=== PATIENT | female | born 1940 | race African-American/Black ===

== ENCOUNTER 2016-08-26 10:44 | Inpatient (IN) ==
--- NOTE | 2016-08-26 11:15 | PROVIDER DOCUMENTATION ---
HPI-Syncope/Dizziness - General Chief Complaint: Dizziness Stated Complaint: Dizziness Time Seen by Provider: 08/26/16 10:50 Source: patient, EMS Allergies/Adverse Reactions: Patient Allergies Allergy/AdvReac Type Severity Reaction Status Date / Time Penicillins Allergy Mild HIVES Verified 08/26/16 11:54 Home Medications: Home Medication List Medication Instructions Recorded Confirmed Last Taken Type Aspirin 81 mg PO DAILY 03/08/12 08/26/16 03/05/12 10:00 History Cholecalciferol (Vitamin D3) 400 unit PO DAILY 03/08/12 08/26/16 03/05/12 10:00 History [Vitamin D] Multivitamin [Multi-Day Vitamins] 1 each PO DAILY 03/08/12 08/26/16 03/05/12 10: 00 History Naproxen Sodium [Aleve] 220 mg PO PRN PRN 03/08/12 08/26/16 03/05/12 10:00 History Bupropion S.r. [Wellbutrin Sr] 150 mg PO QAM 08/26/16 08/26/16 Unknown History Celecoxib [Celebrex] 200 mg PO BID 08/26/16 08/26/16 Unknown History - History of Present Illness-Syncope/Dizzy Nature of Presenting Problem: Presents to er with cc of dizziness since 0200 this am. Reports woke up at 0200 this am when sat up in bed was not able to get out due to dizziness. Reports called daughter at 0900 to call 911. Pt reports she hasnt; been able to walk or stand due to dizziness. Reports has trouble remembering certain things which is normal but doesn't understand what is going on. Prior Episodes: reports: no prior history Onset/Duration: reports: this morning (0200) Timing: reports: still present Position/Activity at time of episode: reports: sitting Loss of Consciousness: no loss of consciousness - Dizziness Severity in ED: reports: moderate Dizziness Related Current/Associated Symptoms: reports: dizzy Any recent trauma/injury?: reports: none Modifying Factors: improves with: changing position Patient usually:: reports: walks without assistance Review of Systems - Adult - REVIEW OF SYSTEMS - ADULT Constitutional: denies: chills, fever, fatique Eyes: reports: no symptoms reported Ears, Nose, Mouth & Throat: reports: no symptoms reported Cardiovascular: denies: chest pain, irregular heart rate, orthopnea Respiratory: reports: no symptoms reported Gastrointestinal: reports: no symptoms reported Genitourinary: denies: discharge, frequent UTI's, hematuria Musculoskeletal: denies: bone pain, joint pain, joint swelling Integumentary: reports: no symptoms reported Neurological: reports: dizziness/vertigo. denies: headache/migraines, loss of balance, numbness, paresthesia Psychiatric: reports: no symptoms reported Endocrine: reports: no symptoms reported Hematologic/Lymphatic: reports: no symptoms reported Allergic/Immunologic: reports: no symptoms reported All Other Systems: Reviewed and Negative Past History - Adult - PAST MEDICAL HISTORY-ADULT Review of Records: reports: Nursing Assessment Review, Medications Reviewed Major Childhood Illnesses: reports: denies history Gastrointestinal: reports: GERD - PRIOR SURGERIES/PROCEDURES Surgical/Procedure History: reports: appendectomy, cholecystectomy, hysterectomy - IMMUNIZATION STATUS Childhood Immunizations: See Nurse Assessment Flu Vaccine: See Nurse Assessment - FAMILY HISTORY Family History: reviewed, not pertinent - SOCIAL HISTORY Smoking: denies Substance Use: none/never Physical Exam-General - PHYSICAL EXAM-ADULT Initial Vital Signs Reviewed: Yes - CONSTITUTIONAL General Appearance: appears well, alert, no apparent distress - EYES Eyes: PERRL/EOMI - HEAD, EARS, NOSE, MOUTH & THROAT HENMT: normal ENT inspection, TMs normal, pharynx normal - NECK Neck: non-tender, full range of motion, supple, normal inspection - RESPIRATORY Respiratory: chest non-tender, lungs clear, normal breath sounds - CARDIOVASCULAR Cardiovascular: regular rate, rhythm, no edema, no gallop, no JVD, no murmur - GASTROINTESTINAL (ABDOMEN) Abdominal Exam: normal bowel sounds, non tender, soft, no organomegaly, no pulsatile mass - MUSCULOSKELETAL Extremity: normal range of motion, non-tender. 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, grossly normal, no motor/sensory deficits - PSYCHIATRIC Psych/Mental Status: normal mood/affect, normal thought content, normal thought process, oriented x 3 Progress - PLAN OF CARE/RESULTS Progress/Plan/Lab Results: Orders Category Date Time Status Cardiac Monitoring DIRECTED Care 08/26/16 11:15 Active Finger Stick Blood Sugar (ED) DIRECTED Care 08/26/16 11:15 Active Saline Loc NOW Care 08/26/16 11:15 Active CHEST-PORTABLE [RAD] Stat Exams 08/26/16 11:15 Taken HEAD W/O CONTRAST [CT] Stat Exams 08/26/16 11:16 Taken ALCOHOL BLOOD Stat Lab 08/26/16 10:10 Completed CBC WITH ELECTRONIC DIFF [HEME] Stat Lab 08/26/16 10:10 Results CK PROFILE [SP CHEM] Stat Lab 08/26/16 10:10 Completed COMPREHENSIVE METABOLIC PANEL [CHEM] Stat Lab 08/26/16 10:10 Completed OCCULT BLOOD SCREENING [STOOL] Stat Lab 08/26/16 12:03 Uncollected PROTIME WITH INR [COAG] Stat Lab 08/26/16 10:10 Completed PTT [COAG] Stat Lab 08/26/16 10:10 Completed TROPONIN T Stat Lab 08/26/16 10:10 Completed URINALYSIS W/POSS RFLX CULT [URINALYSIS] Stat Lab 08/26/16 11:15 Uncollected URINE DRUG SCREEN Stat Lab 08/26/16 11:15 Uncollected 0.9% Sodium Chloride Inj [Ns] 1,000 ml Med 08/26/16 11:16 Active IV 250 mls/hr Pulse Oximetry Stat Oth 08/26/16 11:15 Completed EKG [EKG] Stat Ther 08/26/16 11:15 Draft Vital Signs - 24 hr 08/26/16 10:40 Temperature 98 F Pulse Rate 62 Respiratory 20 Rate Blood Pressure 184/87 O2 Sat by Pulse 100 Oximetry Laboratory Tests 08/26/16 08/26/16 08/26/16 10:10 10:10 10:10 WBC 6.43 RBC 5.36 Hgb 10.1 L Hct 31.6 L MCV 59.0 L MCH 18.8 L MCHC 32.0 L RDW Std Deviation 16.5 H Plt Count 220 MPV 11.0 H Immature Gran % (Auto) 0.0 Neut % (Auto) 53.1 Lymph % (Auto) 39.0 Cobb % (Auto) 5.9 Eos % (Auto) 1.7 Baso % (Auto) 0.3 Immature Gran # (Auto) 0.00 Neut # (Auto) 3.41 Lymph # (Auto) 2.51 Cobb # (Auto) 0.38 Eos # (Auto) 0.11 Baso # (Auto) 0.02 PT 10.2 INR 1.00 PTT (Actin FS) 23.8 Sodium 139 Potassium 4.0 Chloride 102 Carbon Dioxide 27 Anion Gap 10 BUN 16 Creatinine 0.8 Estimated GFR/1.73 m2 > 60 BUN/Creatinine Ratio 20 Glucose 76 Calculated Osmolality 277 Calcium 8.9 Total Bilirubin 0.30 AST 26 ALT 20 Alkaline Phosphatase 65 Creatine Kinase 103 Troponin T Total Protein 6.7 Albumin 3.7 Globulin 3.0 Albumin/Globulin Ratio 1.2 Plasma/Serum Ethyl Alc 08/26/16 08/26/16 10:10 10:10 WBC RBC Hgb Hct MCV MCH MCHC RDW Std Deviation Plt Count MPV Immature Gran % (Auto) Neut % (Auto) Lymph % (Auto) Cobb % (Auto) Eos % (Auto) Baso % (Auto) Immature Gran # (Auto) Neut # (Auto) Lymph # (Auto) Cobb # (Auto) Eos # (Auto) Baso # (Auto) PT INR PTT (Actin FS) Sodium Potassium Chloride Carbon Dioxide Anion Gap BUN Creatinine Estimated GFR/1.73 m2 BUN/Creatinine Ratio Glucose Calculated Osmolality Calcium Total Bilirubin AST ALT Alkaline Phosphatase Creatine Kinase Troponin T < 0.010 Total Protein Albumin Globulin Albumin/Globulin Ratio Plasma/Serum Ethyl Alc Stool occult negative - EKG 1 Time of EKG reading by physician:: 11:04 EKG Read and Signed by:: Pratik Rosen EKG Interpretation (*Must complete 3 of following elements*): Abnormal Rate: 61 Rhythm: NSR [place]: normal QRS: LVH (MINMAL VOLTAGE FOR LVH MAY BE NORMAL VARIANT) SD Interval: normal ST Wave: normal - XRAY 1 XRAY: Bilateral XRAY Study: Chest Impression: Normal XRAY Interpretation: nad - CT/MRI 1 CT Study: Head Impression: Normal CT Results: no intracranial disease; nad - CONSULTS/PCP/HOSPITALIST Notification #1 *Consult/PCP/Hospitalist*: Time Discussed: 14:40 Consult Disposition: Admit Departure - Departure Time of Disposition Order: 14:22 DIAGNOSIS: Dizziness TIA (transient ischemic attack) Qualifiers: Transient cerebral ischemia type: unspecified Qualified Code(s): G45.9 - Transient cerebral ischemic attack, unspecified Hypertension Qualifiers: Hypertension type: essential hypertension Qualified Code(s): I10 - Essential ( primary) hypertension Disposition: ADMITTED INPATIENT 09 Certified Medical Emergency: Emergent Condition: Stable Additional Instructions: Follow up with pcp ED Follow Up Instructions: You have been treated by a care provider in the Emergency Department. These instructions are being provided to you so you can have an understanding of how to care for yourself upon discharge. Upon discharge from the Emergency Department, you are responsible for making arrangements for follow-up care by a physician of your choice. Take all prescribed medications as directed. Return to the Emergency Department immediately for any new or worsening symptoms. You may call the Physician Referral phone number at [phone] to obtain a list of Physicians who are taking new patients. Referrals: Dawn Mike MD [Primary Care Provider] - Attestation - Scribe Verification/Attestation Scribe:: Edwina Macias Acting as Scribe for:: Pratik Rosen Scribe documention review:: This chart was documented by a scribe and accurately reflects the service the provider performed and the decisions made by the provider. Physician Attestation - Physician Attestation I, the provider, attest to the following statement:: Pratik Rosen Physician documentation Attestation:: This documentation recorded by the scribe accurately reflects the service I personally performed and the decisions made by me.
[2016-08-26] MEDS ORDERED: NS 1,000 ML IV ONE (11:16)
[2016-08-26 12:13] LABS: PROTIME 10.2 Seconds (9.2-11.7); PTT 23.8 Seconds (22.0-36.0)
[2016-08-26 12:15] LABS: AGAP 10; ALBUMIN 3.7 g/dL (3.5-5.0); ALKALINE PHOSPHATASE 65 U/L (32-104); BUN 16 mg/dL (8-22); CALCIUM 8.9 mg/dL (8.8-10.2); CHLORIDE 102 mmol/L (98-107); CK PROFILE 103 U/L (24-173); COSMO 277; GOT 26 U/L (10-30); GPT 20 U/L (10-36); SODIUM 139 mmol/L (136-145); TCO2 27 mmol/L (25-35); TOTAL PROTEIN 6.7 g/dL (6.3-8.3)
--- NOTE | 2016-08-26 12:17 | EKG Report ---
Test Performed on : 08/26/2016 11:04:48 AM Test Reason : AMS Blood Pressure : / mmHG Vent. Rate : 061 BPM Atrial Rate : 061 BPM P-R Int : 192 ms QRS Dur : 102 ms QT Int : 460 ms P-R-T Axes : 066 -23 -17 degrees QTc Int : 463 ms Normal sinus rhythm. Moderate voltage criteria for LVH, may be normal variant Borderline ECG No previous ECGs available Unconfirmed Result
[2016-08-26 12:22] LABS: BASO% 0.3 % (0.0-0.8); EOS# 0.11 X1000 (0.0-0.7); EOS% 1.7 % (0.0-10.0); HEMATOCRIT 31.6 % (37.0-47.0); HEMOGLOBIN 10.1 g/dL (12.0-16.0); LYMPH# 2.51 X1000 (1.2-3.4); MCH 18.8 PG (27-31); MONO# 0.38 X1000 (0.11-0.59); MONO% 5.9 % (1.7-9.3); NEUT% 53.1 % (42.2-75.2); PLT 220 X1000 (130-400); RBC 5.36 XMIL (4.2-5.4)
--- NOTE | 2016-08-26 12:46 | Diag Imaging Result Document ---
PROCEDURE NAME: HEAD W/O CONTRAST - 08/26/[address]: A CT dose reduction protocol was used. COMPARISON: Brain MRI from 06/30/2012. FINDINGS: There is moderate patchy periventricular and deep white matter lucency compatible with chronic microvascular disease. This is mostly evident in the region of the basal ganglia. No intracranial mass or hemorrhage. The skull is intact. The sinuses, mastoids, and middle ears are clear. IMPRESSION: No acute disease or change from prior. [facility]
[2016-08-26 12:57] LABS: MANUAL DIFF NEEDED? NO
--- NOTE | 2016-08-26 13:09 | Diag Imaging Result Document ---
PROCEDURE NAME: CHEST-PORTABLE - 08/26/2016 AP PORTABLE CHEST AT 1130 HOURS: FINDINGS: There is a nodule over the right base which has not changed since 02/07/2014. Otherwise, there has been no significant change. IMPRESSION: No evidence of acute disease.
[2016-08-26 13:22] LABS: URINE MICRO REVIEW NEEDED? NO; URINE SOURCE CLEAN CATCH
[2016-08-26 13:27] LABS: BILIRUBIN URINE NEGATIVE (NEGATIVE); BLOOD URINE NEGATIVE (NEGATIVE); COLOR YELLOW; GLUCOSE URINE NEGATIVE (NEGATIVE); LEUKOCYTES URINE TRACE (NEGATIVE); NITRITE URINE NEGATIVE (NEGATIVE); PROTEIN URINE NEGATIVE (NEGATIVE); SP GRAVITY URINE 1.016; TURBIDITY URINE CLEAR (CLEAR); UR EPITHELIAL CELLS <10 /HPF (<10); URINE BACTERIA NEGATIVE /HPF; URINE CULTURE NEEDED? YES; URINE RBC <10 /HPF (<10); URINE WBC <10 /HPF (<10); UROBILINOGEN URINE NORMAL (NORMAL)
[2016-08-26 13:38] LABS: UR AMPHETAMINES QUAL NONE DETECTED (NONE DETECT); UR BARBITUATES QUAL NONE DETECTED (NONE DETECT); UR BENZODIAZEPIN QUAL NONE DETECTED (NONE DETECT); UR CANNABINOIDS QUAL NONE DETECTED (NONE DETECT); UR COCAINE QUAL NONE DETECTED (NONE DETECT); UR METHADONE QUAL NONE DETECTED (NONE DETECT); UR OPIATES QUAL NONE DETECTED (NONE DETECT); UR OXYCODONE QUAL NONE DETECTED (NONE DETECT); UR PCP QUAL NONE DETECTED (NONE DETECT)
[2016-08-26] MEDS ORDERED: APRESOLINE IV ONE (14:21)
[2016-08-26] MEDS ORDERED: APRESOLINE IV PRN ×2 (16:22→19:57)
--- NOTE | 2016-08-26 16:34 | HISTORY AND PHYSICAL ---
CHIEF COMPLAINT: Altered mental status. HISTORY OF PRESENT ILLNESS: Ms. Petty is a 75-year-old female with a history of hypertension, depression and arthritis who presents with an altered mental status and dizziness that began last night. She noticed that while she was standing next to her bed to go to bed last night, she became dizzy and sat down as if she was going to pass out, but she never did pass out or lose consciousness. She had no unilateral weakness last night. She did not notice any slurred speech. She went to bed. This morning she woke up and continued to be dizzy. She was unable to really get out of bed or walk, and 911 was called. She was brought to the ER. She denies any unilateral weakness. She denied any loss of vision, loss of consciousness. Unilateral weakness or any other complaints. No chest pain or shortness of breath. No abdominal pain. No nausea, no vomiting. Head CT in the ER showed chronic changes. Nothing acute. Her laboratory data is largely unremarkable, her blood pressure was elevated in the 190s, hydralazine was given for this. Currently, she is slightly confused, but has no focal deficits, as such, we are going to admit her to the hospital for further treatment and evaluation. PAST MEDICAL HISTORY: 1. Questionable hypertension. 2. Depression. 3. Arthritis. 4. Questionable dementia. SURGICAL HISTORY: Hysterectomy. SOCIAL HISTORY: Patient lives alone. She has 1 daughter. She denies tobacco, alcohol or drug use. FAMILY HISTORY: Significant for dementia. REVIEW OF SYSTEMS: A 14 point review of systems obtained and found to be negative with the exception of the HPI. ALLERGIES: Penicillin. HOME MEDICATIONS: Aspirin 81 mg daily. Wellbutrin XR 150 mg a.m. Celebrex 200 mg p.o. b.i.d. Vitamin D3 400 units p.o. daily. Multivitamin 1 daily. Aleve 220 mg p.o. as needed. PHYSICAL EXAMINATION: VITAL SIGNS: Blood pressure is 148/88, heart rate is 87, respiratory rate 22, O2 saturation 100% on room air. Temperature is 98 degrees. GENERAL: This is an elderly appearing 75-year-old, female, lying in hospital bed in no acute distress. NEUROLOGIC: The patient is awake. She is somewhat dazed appearing. She answers orientation questions correctly. It does take her quite some time to answer them correctly, however. She follows commands without focal deficits. HEENT: Head atraumatic, normocephalic. Pupils equal, round, reactive to light. Oral mucosa is moist. Trachea is midline. No JVD. No carotid bruits. CHEST: Clear to auscultation bilaterally. CARDIOVASCULAR: Regular rate and rhythm. S1-S2 is noted. No murmurs, gallops, clicks, rubs. GI: Soft, nondistended, nontender. Bowel sounds are positive. EXTREMITIES: Without edema, clubbing or cyanosis. Pulses are palpable bilaterally. DIAGNOSTIC DATA: Head CT shows chronic changes, nothing acute. EKG shows sinus rhythm with nonspecific ST and T abnormalities. Chest x-ray shows no acute process. Sodium 139, potassium 4, chloride 102, CO2 27, anion gap 10, BUN 16, creatinine 0.8, glucose 76, calcium 8.9, bilirubin 0.3, AST 26, ALT 20, alkaline phosphatase 65. Troponin is negative. INR 1. Hemoglobin 10, hematocrit 31.6, platelet count is 220,000. Toxicology is negative. UA is negative for urinary tract infection or acute process. ASSESSMENT AND PLAN: 1. Altered mental status: Differentials include hypertensive encephalopathy versus transient ischemic attack versus cerebrovascular accident. There is also a likely underlying dementia. We are going to check an magnetic resonance imaging and magnetic resonance angiography of the head and neck, check echocardiogram and consult with Dr. Joseph. Continue neurologic checks every 4 hours and allow for permissive hypertension. We will check a hemoglobin A1c and lipid panel in the morning. 2. Hypertension: We will allow for permissive hypertension for now, only treating above 200/100. 3. Depression: Chronic and stable. Continue her citalopram. 4. Anemia, microcytic: We will check iron studies and treat accordingly. 5. Deep venous thrombosis prophylaxis with Sequential Compression Devices, TEDs, gastrointestinal prophylaxis with Protonix. Further recommendations to follow. Dictated by MAMTA Pace for Erika Fishman MD
[2016-08-26] MEDS: PROTONIX IV SCH (20:32)
[2016-08-26] MEDS: NS 1,000 ML IV SCH (20:32)
[2016-08-26] MEDS: SODIUM CHLORIDE 0.9% INJ SCH (20:32)
[2016-08-26 22:12] LABS: HEMOGLOBIN A1C 5.3 % (4.8-6.0)
[2016-08-26 22:20] LABS: FREE T4 1.19 ng/dL (0.93-1.70)
[2016-08-27 06:00] LABS: HEMATOCRIT 32.5 % (37.0-47.0); HEMOGLOBIN 10.5 g/dL (12.0-16.0); MCH 19.2 PG (27-31); MCHC 32.3 g/dL (33-37); MCV 59.3 FL (81-99); MPV 9.8 FL (7.4-10.4); RBC 5.48 XMIL (4.2-5.4)
[2016-08-27 06:05] LABS: AGAP 13; BUN 13 mg/dL (8-22); CALCIUM 8.8 mg/dL (8.8-10.2); CHLORIDE 105 mmol/L (98-107); COSMO 283; POTASSIUM 3.6 mmol/L (3.5-5.1); SODIUM 142 mmol/L (136-145); TCO2 24 mmol/L (25-35)
[2016-08-27] MEDS: NORVASC PO SCH (09:21)
[2016-08-27] MEDS: APRESOLINE PO SCH ×3 (09:21→20:07)
[2016-08-27] MEDS: ASPIRIN PO SCH (09:21)
--- NOTE | 2016-08-27 10:32 | Diag Imaging Result Document ---
PROCEDURE NAME: MRI BRAIN W W/O CONTRAST - 08/26/2016 MRI OF THE BRAIN WITH AND WITHOUT GADOLINIUM: FINDINGS: There is increased T2-weighted signal intensity present in the basal ganglia regions bilaterally particularly the external capsule anteriorly on the left side. There is no evidence of restricted diffusion. There is no evidence of bleed or abnormal extra-axial fluid collection. There are some patchy areas of increased T2 and FLAIR signal intensity present in the centrum semiovale particularly anteriorly on the left side. IMPRESSION: Chronic microvascular white matter changes. No evidence of acute ischemia.
--- NOTE | 2016-08-27 10:33 | Diag Imaging Result Document ---
PROCEDURE NAME: MRA BRAIN W/O CONTRAST - 08/26/2016 MRA OF THE BRAIN: There is no evidence of aneurysm or major branch occlusion. There is absence of the right P1 segment of the posterior cerebral artery being mostly supplied by the posterior communicating arteries on both sides. There is somewhat diminished flow in the distal branches of the right posterior cerebral compared to the left. The possibility of distal and small vessel disease cannot be excluded. IMPRESSION: No major arterial occlusion.
--- NOTE | 2016-08-27 10:34 | Diag Imaging Result Document ---
PROCEDURE NAME: MRA NECK W/CONT - 08/26/2016 MRA OF THE NECK: There is severe stenosis at the bifurcation of the left common carotid artery. Some poststenotic dilatation is present in the proximal internal carotid. There is also some apparent irregular plaque formation in the bulb on the right side with stenosis of the proximal external carotid artery. There is flow in both vertebral arteries. Both visible subclavian arteries are normal in appearance. IMPRESSION: Carotid atherosclerotic changes in the bulbs, particularly the left.
--- NOTE | 2016-08-27 14:08 | CONSULTATION ---
DATE OF CONSULTATION: 08/27/2016 NEUROLOGY CONSULT NOTE: Ms. Swann is 75 years old and she was admitted a few days ago with history of dizziness. Her report to me is that she woke up in the night to get to the bathroom and felt dizzy on sitting up. She was so dizzy she did not get up. She rested a little bit longer, tried to sit up again, and again was too dizzy to get up. The history recorded in the chart is that she did get to a standing position, became dizzy as if she were going to pass out but did not lose consciousness. Family did not notice slurred speech. She was dizzy later in the morning and presented to the emergency room. Workup here includes initial noncontrast CT of the head reported to show usual age-related changes, but nothing focal or acute. MRI scan today confirms those findings but shows nothing focal or acute. Brain MRA is unremarkable. Cervical MRA is reported to show evidence of carotid stenosis bilaterally, worse on the left. She reports no previous history of elevated blood pressures. She has had elevated blood pressures here including systolics 180s-190s initially. She was started on medicine to lower blood pressure and she has tolerated that. Lab work shows anemia. Urine drug screen is all negative. On exam, Ms. Swann is awake, alert, attentive and appropriate. Speech is not dysarthric. Language function is intact on bedside testing. Remote memory is fair. Recent memory is poor. On bedside cognitive testing, she registered 3 items and then could recall none of 3 items at 10 minutes. She was able to name the President and discuss some recent news. She was completely oriented except she could not determine the correct day of the week or the day of the month. Head and neck are unremarkable. Visual judge are full tested grossly by confrontational finger counting. Extraocular movements are full. Facial motility is symmetric. Gag is intact. Tongue is midline. Hearing seems good tested by voice and finger rub. Shoulder shrug is equal. She did well on [id number] testing bilaterally. She reports equal pinprick and light touch appreciation over the limbs. Proprioception is good at the great toe MTP joint bilaterally. I did not test her gait. Reflexes are 2+ at the wrists and trace at the ankles bilaterally. Plantar response is silent bilaterally. She has good power in the limbs equal on the left and right. Muscle tone is normal and symmetric in the limbs. IMPRESSION: Global encephalopathy, cognitive impairment, report of dizziness with question of postural features. I do not see evidence of acute neurologic problem. MRI findings are reassuring. If she continues to have dizziness with blood pressure controlled, we might consider trial with meclizine. Her history does not sound like labyrinthopathy but we might consider ENT evaluation if dizziness persists. I believe that she has a baseline cognitive impairment syndrome. I do not think the bedside cognitive testing in the hospital with commotion (as I was testing her, she was having some lab work done, the patient in the other bed was talking loudly on the phone) is valid, but I do believe she has at least a mild cognitive impairment syndrome. This would predispose her to increased confusion with any toxic or metabolic disturbance and possibly with elevated blood pressure. Report of carotid stenosis is noted. This seems asymptomatic and further evaluation can be done electively. No urgent suggestions. Thanks for asking me to see Ms. Swann. [facility]
--- NOTE | 2016-08-27 15:21 | PROGRESS NOTE ---
DATE: 08/27/2016 SUBJECTIVE: The patient states that she wants to go home. She states that she feels better today. OBJECTIVE: Vital Signs: Temperature 98 degrees, blood pressure 153/72, heart rate 73, respirations 16, O2 saturations 100% on room air. General: This is an elderly female, lying comfortably in bed, in no acute distress. Head: Normocephalic, atraumatic. Heart: S1, S2. Normal. Regular rate and rhythm. Lungs: Clear to auscultation bilaterally. No wheezes, no rales. No rhonchi. Abdomen: Positive bowel sounds. Soft, nontender, nondistended. Extremities: No edema. No cyanosis. No calf tenderness. LABS: White blood cell count 6.2, hemoglobin 10, hematocrit 32, platelets 204,000. Sodium 142, potassium 3.6, chloride 101, CO2 25, BUN 13, creatinine 0.9, glucose 92. ASSESSMENT AND PLAN: 1. Accelerated hypertension. Improved. To continue on Norvasc and hydralazine. 2. Confusion with cognitive impairment. The patient was seen by the neurologist today. Continue to monitor the patient's mental status closely. MRI and MRA of the brain and neck were unremarkable. 3. Consult Physical Therapy and determine if the patient is able to walk on her own. 4. Disposition. The patient should be stable for discharge tomorrow if she is able to ambulate without any difficulty.
--- NOTE | 2016-08-27 16:20 | ECHO REPORT ---
ORDER DATE: 08/26/2016 INDICATION FOR THE STUDY: CVA, dizziness, syncope. FINDINGS: 1. Right atrium is normal size at 3.9 cm. 2. Mild tricuspid regurgitation. RV systolic pressure of 30. 3. Normal RV size and systolic function. 4. Mild pulmonic insufficiency. 5. Mild left atrial enlargement at 4.1 cm. 6. I do not see any clear evidence of left ventricular hypertrophy. 7. No mitral valve prolapse. Mild mitral regurgitation. 8. Normal LV size, end-diastolic dimension of 4.4 cm. No clear evidence of left ventricular hypertrophy. Normal LV systolic function. Estimated EF 55%-60% with normal wall motion. 9. Aortic valve opens well and appears trileaflet. No evidence of stenosis or insufficiency. 10. Aorta appears normal in visualized segments. 11. No pericardial effusion seen.
[2016-08-27] MEDS: NS 1,000 ML IV SCH (19:28)
[2016-08-27] MEDS: PROTONIX IV SCH (20:07)
[2016-08-27] MEDS: SODIUM CHLORIDE 0.9% INJ SCH (20:07)
[2016-08-28] MEDS: NS 1,000 ML IV SCH (03:57)
[2016-08-28] MEDS: APRESOLINE PO SCH (06:38)
[2016-08-28 06:48] LABS: HEMATOCRIT 32.4 % (37.0-47.0); HEMOGLOBIN 10.6 g/dL (12.0-16.0); MCH 19.2 PG (27-31); MCHC 32.7 g/dL (33-37); MCV 58.7 FL (81-99); MPV 9.9 FL (7.4-10.4); RBC 5.52 XMIL (4.2-5.4)
[2016-08-28 07:21] LABS: AGAP 10; BUN 18 mg/dL (8-22); CALCIUM 8.8 mg/dL (8.8-10.2); CHLORIDE 102 mmol/L (98-107); COSMO 283; POTASSIUM 3.6 mmol/L (3.5-5.1); SODIUM 140 mmol/L (136-145); TCO2 28 mmol/L (25-35)
[2016-08-28 07:39] VITALS: BP 136/67
[2016-08-28] MEDS: ASPIRIN PO SCH (08:47)
[2016-08-28] MEDS: NORVASC PO SCH (08:47)
--- NOTE | 2016-08-28 10:33 | PROGRESS NOTE ---
DATE: 08/28/2016 Ms. Swann is sitting up on the side of the bed, and she reports no dizziness this morning. She holds herself erect with no evidence of imbalance. Speech is sharp, clear. There is nothing new neurologically on very limited bedside exam. I reviewed the brain imaging and carotid imaging reports with her. I do not have any new suggestion. Thanks for asking me to see Ms. Swann.
--- NOTE | 2016-08-29 12:28 | DISCHARGE SUMMARY ---
ADMISSION DATE: 08/26/2016 DISCHARGE DATE: 08/28/2016 CONSULTATION: Dr. Isrrael Joseph with neurology. PERTINENT PROCEDURES: 1. Head CT showed no acute disease or change from prior. 2. Brain MRA showed no major arterial occlusion. 3. Brain MRI showed chronic microvascular white changes, no evidence of acute ischemia. 4. Echocardiogram showed an EF of 55% with normal wall motion. 5. Neck MRA showed carotid atherosclerotic changes in the bones of cheeks DISCHARGE DIAGNOSES: 1. Accelerated hypertension 2. Confusion with cognitive impairment 3. Depression, chronic HOSPITAL COURSE: Briefly, this more than 75-year-old, female, has past medical history of hypertension, depression and arthritis, presented to the ED with altered mental status, dizziness that began the night prior to admission. She noticed this while she was standing next to her bed to go to bed. She became dizzy. She sat down and felt like she was going to pass out. However, she states she never did pass out or lose consciousness. No unilateral weakness. No slurred speech. She went ahead and went to bed. In the morning she woke up and she continued to be dizzy. She was unable to get out of bed or walk. She did call 911 and EMS brought her to the ED. Head CT in the ED showed chronic changes, but nothing acute. Her laboratory data was largely unremarkable. Her blood pressure was elevated in the 190s. Hydralazine was given for this. She was slightly confused, but there were no focal deficits. The patient was admitted for altered mental status with differentials including hypertensive encephalopathy versus TIA or CVA. The patient had a series of tests, including a brain MRA, brain MRI, neck MRA and an echocardiogram; they were essentially unremarkable. Dr. Joseph with neurology was consulted. He believed that she has a baseline cognitive impairment syndrome that would predispose her to increased confusion with any toxic or metabolic disturbance and possibility of elevated blood pressure. He felt if she continued to be dizzy with her blood pressure controlled, might consider a trial of Meclizine. PT was consulted to determine if the patient was able to walk on her own. The patient is wanting to go home. She states that she does feel better. The patient is being discharged home today with medication changes. VITAL SIGNS AT TIME OF DISCHARGE: Temperature is 98.4 degrees, heart rate 73, respirations 20, blood pressure 136/67, and O2 is 100% on room air. DISCHARGE DIET: Healthy heart diet. DISCHARGE MEDICATIONS: 1. Aspirin 81 mg p.o. daily. 2. Vitamin D 400 units p.o. daily. 3. Multi-day vitamins, 1 each p.o. daily. 4. Wellbutrin XR 150 mg p.o. q.a.m. 5. Apresoline 25 mg p.o. q. 8 hours. 6. Norvasc 10 mg p.o. daily. FOLLOWUP: The patient is being discharged home. She will follow up with her primary care physician, Dr. Dawn Mike. The patient can return to the ED for any worsening of symptoms. DISCHARGE TIME: 30 minutes. Dictated by MAMTA Sahu for Erika Fishman MD MTDD
--- NOTE | 2016-09-02 13:58 | DISCHARGE SUMMARY ---
ADMISSION DATE: 08/26/2016 DISCHARGE DATE: 08/28/2016 DISCHARGE SUMMARY ADDENDUM: Hypertensive encephalopathy on top of cognitive impairment.
== END 2016-08-28 12:26 | disposition home or self-care (01) | DRG 79 ==
LOC: EDBD → EDUNIT# → SUPCPDRO 10:44 → ED 10:44 → EDIPHOLD 15:43 → 4N 18:26
PROVIDERS: ATTEND Internal Medicine
DX: I67.4 Hypertensive encephalopathy (principal); F03.90 Unspecified dementia, unspecified severity, without behavioral disturbance, psychotic disturbance, mood disturbance, and anxiety; I10 Essential (primary) hypertension; I65.29 Occlusion and stenosis of unspecified carotid artery; K21.9 Gastro-esophageal reflux disease without esophagitis; F32.9 Major depressive disorder, single episode, unspecified; M19.90 Unspecified osteoarthritis, unspecified site; Z79.899 Other long term (current) drug therapy; Z79.82 Long term (current) use of aspirin; D50.9 Iron deficiency anemia, unspecified
CPT/HCPCS: 70450; 70544; 70548; 70553; 71010; 80048; 80053; 80061; 81001; 82270; 82550; 82948; 83036; 83721; 83735; 84439; 84443; 84484; 85025; 85027; 85610; 85730; 87088; 93005; 93306; 96374; A9579; C9113; G0480; J0360; J7030; 80320; 80324; 80345; 80346; 80349; 80353; 80358; 80361; 80365; 83992; S0164